=== PATIENT | female | born 1985 | race Caucasian/White ===

== ENCOUNTER → 2016-08-06 | Outpatient (CLI) | payer OTHER ==
[~2016-08-06] MED LIST: ALBUAER9; BCPILLS PO; LEVO125T7 PO; LORA-741 PO; PRENTAB26 PO; SNG10 PO
[2016-08-06 13:38] LABS: THYROID STIMULATING HORMONE 0.42 uIu/ml (0.300-4.500)
== END | disposition home or self-care (01) ==
LOC: C.LAB1850 11:53
PROVIDERS: ATTEND Obstetrics & Gynecology
DX: O99.280 Endocrine, nutritional and metabolic diseases complicating pregnancy, unspecified trimester (principal); Z3A.00 Weeks of gestation of pregnancy not specified; E03.9 Hypothyroidism, unspecified

== ENCOUNTER 2016-09-03 16:54 | Outpatient (CLI) | payer OTHER ==
[~2016-09-03 16:54] MED LIST changes: -PRENTAB26 PO
--- NOTE | 2016-09-03 18:49 | DIAGNOSTIC IMAGING REPORT ---
BIOPHYSICAL PROFILE CLINICAL HISTORY: monitoring. COMPARISON STUDY: No previous studies for comparison. TECHNIQUE: Transabdominal sonography of the fetus was performed. FINDINGS: Please note that a dedicated anatomical survey was not performed. Femur length measures 7.1 cm which corresponds to an estimated gestational age of 36 weeks and 3 days. A single viable intrauterine gestation was noted with normal heart rate of 152 bpm. Amniotic fluid index measured 10.5 cm. breathing, movement and tone were normal. Cephalic presentation was noted. Cervix was closed, measuring approximately 3.4 cm. Placenta was right lateral in location. No placental abnormality was identified by sonography. IMPRESSION: 1. Single viable intrauterine gestation. 2. Normal biophysical profile of 8 out of 8. 3. Cephalic presentation. 4. Closed cervix, measuring approximately 3.4 cm. Electronically signed by: Rafal Tyler M.D. 09/03/2016 6:48 PM Dictated Date/Time: 09/03/2016 6:45 PM
== END 2016-09-03 19:34 | disposition home or self-care (01) ==
LOC: C.LD 16:54 → C.OPB 16:54
PROVIDERS: ATTEND Obstetrics & Gynecology
DX: O26.893 Other specified pregnancy related conditions, third trimester (principal); Z3A.35 35 weeks gestation of pregnancy

== ENCOUNTER → 2016-09-10 | Outpatient (CLI) | payer OTHER ==
[~2016-09-10] MED LIST changes: +PRENTAB26 PO
== END | disposition home or self-care (01) ==
LOC: C.LABSPEC 17:48
PROVIDERS: ATTEND Obstetrics & Gynecology
DX: O09.93 Supervision of high risk pregnancy, unspecified, third trimester (principal)

== ENCOUNTER 2016-09-17 11:14 | Outpatient (CLI) | payer OTHER ==
[~2016-09-17 11:14] MED LIST changes: -PRENTAB26 PO
[2016-09-17 12:15] LABS: BASO % 0.2 %; BASO ABS # 0.02 K/uL (0-0.2); EOS % 0.4 %; HEMATOCRIT 33.3 % (37-47); IG% 0.4 %; LYMPH ABS # 1.76 K/uL (1.2-3.4); MEAN CELL VOLUME 85.4 fL (80-100); MEAN CORPUSCULAR HEMOGLOBIN 29.5 pg (25-34); MEAN PLATELET VOLUME 10.5 fL (7.4-10.4); MONO % 4.7 %; NEUT % 77.3 %; PLATELET COUNT 221 K/uL (130-400); WHITE BLOOD COUNT 10.35 K/uL (4.8-10.8)
[2016-09-17 12:19] LABS: COMPLETE YES; MEAN CORPUSCULAR HGB CONC 34.5 g/dl (32-36)
[2016-09-17 12:54] LABS: ALT/SGPT 16 U/L (12-78); AST/SGOT 14 U/L (15-37); BLOOD UREA NITROGEN 7 mg/dl (7-18); BUN/CREATININE RATIO 10.6 (10-20); CALCIUM 9.5 mg/dl (8.5-10.1); CARBON DIOXIDE 22 mmol/L (21-32); CHLORIDE 104 mmol/L (98-107); CREATININE 0.63 mg/dl (0.60-1.20); GLUCOSE 94 mg/dl (70-99); POTASSIUM 3.7 mmol/L (3.5-5.1); SODIUM 137 mmol/L (136-145)
[2016-09-18] MEDS ORDERED: PRENTAB26 PO (15:46)
== END 2016-09-17 13:44 | disposition home or self-care (01) ==
LOC: C.OPB 11:14 → C.LD 11:14 → C.OPB 13:44
PROVIDERS: ATTEND Obstetrics & Gynecology
DX: O26.893 Other specified pregnancy related conditions, third trimester (principal); R03.0 Elevated blood-pressure reading, without diagnosis of hypertension; Z3A.37 37 weeks gestation of pregnancy

== ENCOUNTER 2016-09-18 13:54 | Inpatient (IN) | payer OTHER ==
[~2016-09-18] VITALS: Ht 170.2 cm; Wt 125.0 kg
[2016-09-18 15:45] VITALS: Ht 170.2 cm; Wt 125.0 kg
[2016-09-18] MEDS ORDERED: PRENTAB26 PO (15:46)
[2016-09-18] MEDS ORDERED: LACTATED RINGER'S 1000ML 1,000 ML IV PRN (15:54)
--- NOTE | 2016-09-18 16:04 | Medical Student: [facility] ---
Medical Student Progress Note Date of Service Sep 18, 2016. 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 Patient is having infrequent contractions without bleeding or fluid leak. Patient has felt movements and is having contractions every 6-8 minutes. Patient denies any pain, XIAO, changes in vision, dizziness, chest pain or SOB. O: Cervix soft, 4-5 cm dilated, 70% effaced, -2 station heart tracing: Baseline 150 bpm, moderate variability, occasional accelerations, no decelerations. 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 Patient is in active stage 1 of labor. Category 1 tracing (baseline 150, moderate variability, accelerations present, no decelerations present) Continue external monitoring. Pitocin will be administered to regularize contractions, starting at 1 milliunit/min. Epidural ( Bupivicaine 30 mL, ephedrine sulfate 50 mg, Fentanyl/Ropivacaine 100 ml, Fentanyl citrate 100 mcg) will be placed prior to rupture of membranes or immediately after if spontaneous rupture. Continue IV lactated ringers 1000 mL @ 125 mL/hr Q8hr and 1000 mL @ 999 mL/hr Q1H1M PRN .
[2016-09-18 16:15] LABS: HEMATOCRIT 32.8 % (37-47); MEAN CELL VOLUME 83.7 fL (80-100); MEAN CORPUSCULAR HEMOGLOBIN 28.8 pg (25-34); MEAN CORPUSCULAR HGB CONC 34.5 g/dl (32-36); MEAN PLATELET VOLUME 10.3 fL (7.4-10.4); PLATELET COUNT 226 K/uL (130-400); RED BLOOD COUNT 3.92 M/uL (4.2-5.4); WHITE BLOOD COUNT 8.94 K/uL (4.8-10.8)
[2016-09-18] MEDS ORDERED: LACTATED RINGER'S 1000ML 500 ML IV PRN ×2 (16:26→19:30)
[2016-09-18] MEDS ORDERED: OXYTOCIN 30 UNITS/500ML NSS IV PRN (16:30)
[2016-09-18] MEDS: LACTATED RINGER'S 1000ML 1,000 ML IV SCH ×2 (16:44→18:42)
[2016-09-18] MEDS ORDERED: FENTANYL 2MCG/ML ROPIV 1.25MG/ML 100ML BAG EPI ONE (18:03)
[2016-09-18] MEDS ORDERED: EpHEDrine SULFATE INJ 50 MG/ML AMP ONE (18:03)
[2016-09-18] MEDS ORDERED: BUPIVACAINE 0.25% 30 ML VIAL ONE (18:03)
[2016-09-18] MEDS ORDERED: FENTANYL CITRATE INJ 50 MCG/1 ML 2 ML VIAL ONE (18:04)
[2016-09-18] MEDS ORDERED: EpHEDrine SULFATE INJ 50 MG/ML AMP IV PRN (19:30)
[2016-09-18] MEDS ORDERED: NALOXONE HCL INJ 0.4 MG/1 ML VIAL/CARP IV PRN (19:30)
[2016-09-18] MEDS ORDERED: ONDANSETRON INJ 2 MG/ML 2 ML VIAL IV PRN (19:30)
[2016-09-18] MEDS ORDERED: PROMETHAZINE HCL INJ 25 MG in SODIUM CHLORIDE 0.9% 50ML 50 ML IV PRN (19:30)
[2016-09-18] MEDS ORDERED: NALBUPHINE HCL INJ 10 MG/ML AMP IV PRN (19:30)
[2016-09-18] MEDS ORDERED: NALOXONE HCL INJ 1 MG in SODIUM CHLORIDE 0.9% 1000ML 1,000 ML IV PRN (19:30)
[2016-09-18] MEDS ORDERED: DiphenhydrAMINE HCL 50 MG/ML VIAL IV PRN (19:30)
[2016-09-18] MEDS ORDERED: FENTANYL 2MCG/ML ROPIV 1.25MG/ML 100ML BAG EPI PRN (19:30)
[2016-09-19] MEDS ORDERED: SUPERCREAM 0.870 % 15GM JAR EXT PRN (00:30)
[2016-09-19] MEDS ORDERED: OXYTOCIN 30 UNITS/500ML NSS IV PRN (00:30)
[2016-09-19] MEDS ORDERED: HYDROCORTISONE ACETATE 25 MG SUPP PR PRN (00:30)
[2016-09-19] MEDS ORDERED: LANOLIN OINT EXT PRN ×2 (00:30)
[2016-09-19] MEDS ORDERED: ACETAMINOPHEN/CODEINE 300/30MG TAB PO PRN ×2 (00:30)
[2016-09-19] MEDS ORDERED: BENZOCAINE 20% AER SPR 82.5 GM CAN EXT PRN (00:30)
[2016-09-19] MEDS ORDERED: IBUPROFEN 600 MG TAB ONE (02:28)
[2016-09-19] MEDS ORDERED: NURSING VERBAL MED ORDER ONE (02:45)
[2016-09-19 03:25] VITALS: BP 152/89; PULSE 100; TEMP 37.1; O2SAT 96
[2016-09-19 04:25] VITALS: BP 122/72
[2016-09-19 07:18] VITALS: BP 128/81; PULSE 86; TEMP 36.6; O2SAT 97
[2016-09-19] MEDS: DOCUSATE SODIUM 100 MG CAP PO SCH ×2 (07:34→20:32)
[2016-09-19] MEDS: LEVOTHYROXINE 125 MCG TAB PO SCH (07:34)
--- NOTE | 2016-09-19 07:40 | DELIVERY SUMMARY ---
DATE OF OPERATION: 09/18/2016 DELIVERING SURGEON: Dr. Pedroza. PRE-DELIVERY DIAGNOSES: 1. 31-year-old -0-0-2 at 38 weeks 0 days. 2. Gestational hypertension. 3. History of stillbirth at 38 weeks. 4. Hypothyroidism. POST-DELIVERY DIAGNOSES: Same. PROCEDURE: Spontaneous vaginal delivery. FINDINGS: Viable male . Apgars 8 and 9. Compound hand at time of delivery. Weight pending. Please see nursery record. ESTIMATED BLOOD LOSS: 200 mL. DESCRIPTION OF DELIVERY: The patient progressed to complete with epidural anesthesia. She then spontaneously vaginally delivered a viable male in the right occiput anterior position. The head delivered. During attempt to deliver anterior shoulder a compound hand was noted. This hand and arm were delivered and then the posterior shoulder was delivered. Marti maneuver was employed to better deliver the compound hand. The baby was placed on the mother's abdomen. A spontaneous cry was heard. The cord was doubly clamped and cut. A cord segment was retained for gasses. Cord blood was obtained. The placenta delivered spontaneously intact with a 3-vessel cord. The uterus and vagina were swept of all clots and debris. Pitocin was given. The uterus became firm. The cervix, vagina, and perineum were inspected and a first degree perineal laceration was noted; however, this was hemostatic and not requiring repair. This was discussed with the patient at time of delivery. The mother and baby tolerated the delivery well. Sponge and instrument counts were correct after the delivery x2. I attest to the content of the Intraoperative Record and any orders documented therein. Any exceptio ns are noted below.
--- NOTE | 2016-09-19 08:32 | Anesthesia Procedure Note ---
Anesthesia Epidural Removal Nt Date & Time Sep 19, 2016 at 08:32 Vital Signs Pain Intensity: 3.0 Vital Signs Past 12 Hours Date Time Temp Pulse Resp B/P Pulse Ox O2 Delivery O2 Flow Rate FiO2 09/19/16 07:18 36.6 86 18 128/81 97 Room Air 09/19/16 04:25 122/72 09/19/16 03:25 37.1 100 18 152/89 96 Room Air 09/19/16 03:25 Room Air Notes Mental Status: alert / awake / arousable, participated in evaluation Nausea / Vomiting: adequately controlled Pain: adequately controlled Airway Patency, RR, SpO2: stable & adequate BP & HR: stable & adequate Hydration State: stable & adequate Neuraxial Anesthesia: was administered Anesthetic Complications: no major complications apparent, pt satisfied with anesthetic care Epidural: removed without complications, with tip intact
[2016-09-19 11:51] VITALS: BP 145/99; PULSE 88; TEMP 37.1; O2SAT 98
[2016-09-19] MEDS: IBUPROFEN 600 MG TAB PO PRN ×3 (13:02→21:31)
[2016-09-19 15:30] VITALS: BP 124/79; PULSE 84; TEMP 37.1; O2SAT 96
[2016-09-19 19:00] VITALS: BP 128/78; PULSE 84; TEMP 36.9; O2SAT 99
[2016-09-20 00:25] VITALS: BP 112/66; PULSE 92; TEMP 36.7
[2016-09-20 07:23] VITALS: BP 150/83; PULSE 84; O2SAT 97
[2016-09-20] MEDS: DOCUSATE SODIUM 100 MG CAP PO SCH (07:36)
[2016-09-20] MEDS: LEVOTHYROXINE 125 MCG TAB PO SCH (07:36)
--- NOTE | 2016-09-20 07:40 | Progress Note ---
Subjective Sep 20, 2016. Subjective conversation w/ patient, physical exam Ambulation: ambulating normally Voiding: no voiding problems Passing Gas: Yes Diet Tolerance: Regular Diet Lochia: Small Feeding Type: Bottle Feeding Review of Systems Constitutional: No chills, No fever Respiratory: No cough, No shortness of breath Cardiac: No chest pain, No claudication Objective Vital Signs Date Time Temp Pulse Resp B/P Pulse Ox O2 Delivery O2 Flow Rate FiO2 09/20/16 07:23 84 12 150/83 97 Room Air 09/20/16 00:25 Room Air 09/20/16 00:25 36.7 92 16 112/66 Room Air 09/19/16 19:00 36.9 84 18 128/78 99 Room Air 09/19/16 15:30 37.1 84 18 124/79 96 Room Air 09/19/16 15:30 96 Room Air 09/19/16 11:51 37.1 88 20 145/99 98 Room Air 09/19/16 08:00 Room Air Physical Exam General Appearance: WELL-APPEARING, NO APPARENT DISTRESS Respiratory/Chest: lungs clear, no accessory muscle use, + wheezing (mild wheeze at right lower lung) Cardiovascular: regular rate, rhythm, no murmur Fundus: Firm, Non-Tender, Relation to Umbilicus (2 cm below) Extremities: non-tender, no calf tenderness Laboratory Results Last 24 Hours Test 09/20/16 04:44 Assessment and Plan Post- Day#: 1 Continue Routine Care: s/p Day 1 - vitals reviewed and wnl - Hgb 11.3 two days ago - blood: O+, GBS-, Rubella immune - encourage ambulation, monitor lochia, and encourage breast feeding - patient doing well clinically - patient counselled on discharge instructions - PATIENT TO BE DISCHARGED TODAY Resident Physician Supervision Note: I was present with [Name of resident] during the history and exam. I discussed the case with the resident and agree with the findings and plan as documented in the note. Any exceptions or clarifications are listed here: [None ] Documented By: Beatriz Lazaro
--- NOTE | 2016-09-20 07:41 | Discharge Instructions ---
Discharge Instructions Date of Service Sep 20, 2016. Admission Reason for Admission: IUP Discharge Discharge Diagnosis / Problem: Spontaneous Vaginal Delivery Discharge Goals Goal(s): Routine recovery after delivery Medications Continue Dispensed Medications: supercream, dermaplast, tucks, lansinoh Activity Recommendations Activity Limitations: per Instructions/Follow-up section . Instructions / Follow-Up Instructions / Follow-Up ACTIVITY RECOMMENDATIONS: * Gradual return to full activity over the next 2-3 weeks. * No lifting - nothing heavier than baby over the next 2-3 weeks. * Do not engage in vigorous exercise, sexual activity or sports until cleared by your physician. * Do not drive or operate any motorized equipment until cleared by your physician. * You may shower/bathe daily. MEDICATIONS: For discomfort or pain, you may use Acetaminophen (Tylenol), Ibuprofen (Advil), or Naproxen (Aleve) following the package directions. For constipation you may use Colace following the package directions. BREAST CARE: If you are not breast feeding: * Wear a supportive bra 24 hours a day for one to two weeks. * Avoid stimulating your breasts and nipples as much as possible during the first few weeks after delivery. * When taking a shower, have the warm water hit your back, not breasts. * When your breasts feel full, apply ice packs. Usually three to four times a day helps ease the discomfort. * Take a mild pain medication (Tylenol / Motrin) when you are uncomfortable. If breast feeding: * Use breast milk to lubricate nipples. Lansinoh cream may be used for sore nipples. You do not need to remove cream prior to breast feeding. If using a different brand of cream, check the label for directions regarding removal of cream prior to nursing. * Wear a supportive bra. * If having problems with breasts or breast feeding, call a outside sales consultant or your health care provider. EPISIOTOMY CARE: After delivery, if you have an episiotomy (stitches), the following steps will ease discomfort and aid healing. * For the first 24 hours after delivery, place ice packs next to your episiotomy to help reduce swelling. * After the first 24 hour-period, sitz baths, either portable or in the tub, are suggested. A shower with a shower arm sprayed over the episiotomy may be comforting. * Angie care should be done after each voiding and bowel movement. Squirt warm water from a plastic bottle over the perineum (region of the body between the anus and urinary opening) and pat dry. * Use Dermoplast to ease discomfort. Shake container. [place] directly over the episiotomy. Place a Tucks on a clean sanitary pad next to your episiotomy. SPECIAL CARE INSTRUCTIONS: When you are discharged from the hospital, it is important for you to follow the instructions listed below: * During the first week at home, you should be able to care for yourself and your baby. In addition, the usual light household activities are encouraged. * Limit your activities to the way you feel. Do not try to clean the house or move furniture. Be sensible. * If you actively engage in sports and have done so up until the time of your delivery, you may resume these activities as soon as you feel able. This may take up to one month or even longer. Use good judgment. * Continue to take your vitamins for at least six weeks after the of your baby. * Your diet need not be limited unless you were on a special diet before your delivery. Breast-feeding mothers need around 2500 calories per day and at least 64-80 ounces of fluid per day (8 to 10 glasses). * You should eat foods from the four major food groups. Crash diets or fad diets are to be avoided. Eating lean meats, fresh fruits and vegetables, low-fat dairy products, high fiber foods and a regular exercise program, will help you get back to your pre- weight without putting your health at risk. * Constipation is sometimes a problem after delivery. Take a mild laxative as needed. If breast feeding, Milk of Magnesia is acceptable to use. You may use a suppository or Fleets enema if no episiotomy. * A daily shower or tub bath is suggested. Be sure to thoroughly and gently dry the perineum. * A bloody vaginal discharge will usually continue until around four weeks post . A small amount of bleeding may continue for as long as six weeks. Vaginal discharge changes from the bright red bleeding after delivery to pink then brownish and finally yellowish-pink before becoming white and disappearing. * Bleeding may increase with activity. Your first period may come in 4-8 weeks. If you are breast feeding, your period may be delayed even longer. * Waller (sex) can begin whenever both you and your partner feel comfortable and do not have any form of genital infection. It is recommended that you wait at least six weeks for internal and external healing to occur. If you have questions, please talk to your health care practitioner. A condom should be used to prevent infection and . * Foreplay, gentle intercourse and lubrication is very important the first several times to prevent pain. A water-based lubricant such as K-Y jelly or Astroglide may be used. * If you have RH negative blood and your baby is RH positive, you will receive RHOGAM by injection prior to discharge. The nurse will give you a card to keep with you that has the date and place that you received RHOGAM after delivery. * During your care, you had a Rubella screen done to check for the presence of rubella antibodies in your blood. If your test was negative, you will receive a Rubella vaccine prior to discharge. This vaccine may cause a fever, soreness at the injection site and flu-like symptoms. If these symptoms persist, notify your health care practitioner. is not advised for one month after a Rubella vaccine. * Verbalizes understanding of car seat law as reviewed with patient nursing. * Car Seat hand-out given and reviewed with patient by nursing. * Shaken baby information reviewed with patient by nursing. Call you doctor if: * Heavy bleeding (saturating several pads an hour) or passing clots the size of your fist. * A fever >101 degrees F (38.3 degrees C) on two occasions four hours apart and /or chills. * Unusual pain in the pelvic or vaginal areas. * "Baby Blues" lasting longer than two weeks. If you have any questions or concerns, call your health care practitioner at . FOLLOW UP VISIT: * Please call the office at to schedule a 6 week examination. It is important you keep this appointment. It is important for you to make arrangements for either yearly or twice yearly check-ups thereafter. Current Hospital Diet Patient's current hospital diet: Regular OB Diet Discharge Diet Recommended Diet: Regular Diet Pending Studies Studies pending at discharge: no Medical Emergencies . Who to Call and When: Medical Emergencies: If at any time you feel your situation is an emergency, please call 911 immediately. . Non-Emergent Contact Non-Emergency issues call your: Primary Care Provider, Client Partner . . "Provider Documentation" section prepared by Carlos Hawkins. VTE Core Measure Inpt VTE Proph given/why not?: Treatment not indicated
[2016-09-20 07:53] VITALS: BP 144/92; TEMP 36.7
[2016-09-20 09:15] VITALS: BP 123/87
[2016-09-21] MEDS ORDERED: BISACODYL 10 MG SUPP PR PRN (07:00)
== END 2016-09-20 12:30 | disposition home or self-care (01) | DRG 775 ==
LOC: C.LD 14:57 → C.OBG 09-19 02:32
PROVIDERS: ADMIT Obstetrics & Gynecology; ATTEND Obstetrics & Gynecology
PROC: 10907ZC Drainage of Amniotic Fluid, Therapeutic from Products of Conception, Via Natural or Artificial Opening (ICD-10-PCS; principal; 2016-09-18)
PROC: 3E033VJ Introduction of Other Hormone into Peripheral Vein, Percutaneous Approach (ICD-10-PCS; principal; 2016-09-18)
PROC: 10E0XZZ Delivery of Products of Conception, External Approach (ICD-10-PCS; 2016-09-19)
DX: O13.3 Gestational [pregnancy-induced] hypertension without significant proteinuria, third trimester (principal); Z68.43 Body mass index [BMI] 50.0-59.9, adult; Z37.0 Single live birth; O99.284 Endocrine, nutritional and metabolic diseases complicating childbirth; E03.9 Hypothyroidism, unspecified; O32.6XX0 Maternal care for compound presentation, not applicable or unspecified; O99.52 Diseases of the respiratory system complicating childbirth; J45.909 Unspecified asthma, uncomplicated; O99.214 Obesity complicating childbirth; E66.9 Obesity, unspecified; O99.02 Anemia complicating childbirth; D64.9 Anemia, unspecified; Z87.59 Personal history of other complications of pregnancy, childbirth and the puerperium; Z3A.38 38 weeks gestation of pregnancy

== ENCOUNTER → 2016-10-29 | Outpatient (CLI) | payer OTHER ==
[~2016-10-29] MED LIST changes: -ALBUAER9; -BCPILLS PO; -LORA-741 PO; +PRENTAB26 PO; -SNG10 PO
== END | disposition home or self-care (01) ==
LOC: C.PAPS 10:03
PROVIDERS: ATTEND Obstetrics & Gynecology
DX: Z39.2 Encounter for routine postpartum follow-up (principal)